=== PATIENT | male | born 1990 | race Native Hawaiian/Other Pacific Islander ===

== ENCOUNTER 2022-05-16 16:44 | Emergency (ER) | payer OTHER ==
[~2022-05-16] VITALS: Ht 162.6 cm; Wt 79.4 kg
[2022-05-16 17:03] VITALS: BP 107/54; TEMP 98.2
== END 2022-05-16 20:16 | disposition home or self-care (01) ==
LOC: ED 16:44
DX: R11.2 Nausea with vomiting, unspecified (principal); B34.9 Viral infection, unspecified; U07.1 COVID-19
CPT/HCPCS: 87635; 96372; 99283; J2405; U0003

== ENCOUNTER 2023-02-19 05:28 | Emergency (ER) | payer OTHER ==
[~2023-02-19] VITALS: Ht 170.2 cm; Wt 74.8 kg
[2023-02-19 06:26] VITALS: BP 115/69; TEMP 98
== END 2023-02-19 06:26 | disposition home or self-care (01) ==
LOC: ED 05:28
DX: R21 Rash and other nonspecific skin eruption (principal)
CPT/HCPCS: 96372; 99282; 99283; J1200; J2930

== ENCOUNTER 2023-02-23 08:23 | Emergency (ER) | payer OTHER ==
[~2023-02-23] VITALS: Ht 170.2 cm; Wt 72.6 kg
[2023-02-23 08:55] VITALS: BP 133/84; TEMP 99.3
== END 2023-02-23 09:56 | disposition home or self-care (01) ==
LOC: ED 08:23
DX: M27.3 Alveolitis of jaws (principal)
CPT/HCPCS: 96372; 99282; J1885